=== PATIENT | female | born 1955 | race Caucasian/White ===

== ENCOUNTER 2017-01-25 13:55 | Outpatient (RCR) | payer MEDICARE, OTHER | END 2017-03-14 14:25 | disposition home or self-care (01) | LOC: ONC 13:55 | PROVIDERS: ATTEND Internal Medicine Hematology & Oncology | DX: C50.211 Malignant neoplasm of upper-inner quadrant of right female breast (principal); Z17.0 Estrogen receptor positive status [ER+]; I25.10 Atherosclerotic heart disease of native coronary artery without angina pectoris; E11.9 Type 2 diabetes mellitus without complications; E03.9 Hypothyroidism, unspecified; E78.5 Hyperlipidemia, unspecified; E66.9 Obesity, unspecified; Z68.33 Body mass index [BMI] 33.0-33.9, adult; Z79.84 Long term (current) use of oral hypoglycemic drugs; Z79.899 Other long term (current) drug therapy | CPT/HCPCS: 99213; 99214 ==

== ENCOUNTER → 2017-04-25 | Outpatient (CLI) | payer MEDICARE ==
[~2017-04-25] MED LIST: CATHETER FLUSH 10 ML SYR IV PRN
--- NOTE | 2017-04-25 11:47 | Diagnostic Imaging Report ---
PROCEDURE: CT chest with contrast, CT abdomen with and without contrast. TECHNIQUE: Precontrast acquisitions were acquired through the abdomen. Multiple contiguous axial images were obtained through the chest and abdomen after administration of intravenous contrast. INDICATION: Right breast carcinoma, status post lumpectomy. COMPARISON: No prior CT studies are available for comparison. FINDINGS: CT chest: Postsurgical changes to the right breast are identified with multiple surgical clips present. No axillary lymphadenopathy is identified. No internal mammary lymphadenopathy is seen. No mediastinal or hilar lymphadenopathy is identified. No pericardial or pleural fluid is detected. Parenchymal evaluation is without evidence of a parenchymal mass, nodule, or infiltrate. Bony structures are unremarkable. IMPRESSION: Post-therapeutic changes to the right breast. No thoracic lymphadenopathy or evidence of pulmonary metastatic disease is identified. CT abdomen: No discrete liver mass is identified. The gallbladder is surgically absent. Pancreas and spleen are unremarkable. No adrenal mass is identified. The kidneys are unremarkable. The aorta is heavily calcified but nonaneurysmal. No central retroperitoneal or mesenteric lymphadenopathy is seen. The visualized bowel loops are of normal caliber. There is no ascites. The bony structures are unremarkable. IMPRESSION: Unremarkable CT of the abdomen. Dictated by: Dictated on workstation # [id number]
--- NOTE | 2017-04-25 12:28 | Diagnostic Imaging Report ---
INDICATION: Screening for osteoporosis. FINDINGS: Bone mineral analysis of lumbar spine and both hips was performed. The bone mineral density of the lumbar spine is 1.064 with a T score of -1.1. Bone mineral density of left femoral neck is 0.881 with a T score of -1.1. Bone mineral density of right femoral neck is 0.834 with a T score of -1.5. IMPRESSION: Findings consistent with osteopenia of the lumbar spine and bilateral femoral necks. Dictated by: Dictated on workstation # [id number]
--- NOTE | 2017-04-25 14:16 | Diagnostic Imaging Report ---
INDICATION: Right breast carcinoma. TECHNIQUE: The patient was administered 27.1 mCi of technetium 99m MDP intravenously and whole body imaging was performed after a three-hour delay. COMPARISON: No prior studies are available for comparison. FINDINGS: There is normal uptake of activity by the axial and appendicular skeleton. There is normal uptake of activity by both kidneys with excretion into the urinary bladder. There is mild abnormal uptake involving two separate lower thoracic vertebral bodies, approximately T12 and T9. No corresponding abnormality on recent CT study performed earlier the same day is identified. There are two regions of abnormal uptake involving the left calvarium. A smaller focus near the midline is seen. IMPRESSION: 1. Abnormal bone scan demonstrating mild uptake involving the lower thoracic vertebrae without corresponding abnormality noted on CT study earlier the same day. MRI of the thoracic spine would be recommended for further evaluation. 2. Abnormal uptake involving the left calvarium, suspicious for a metastatic lesion. MRI or CT would be recommended for further evaluation. Dictated by: Dictated on workstation # [id number]
== END ==
LOC: RAD 10:10
PROVIDERS: ATTEND Internal Medicine Hematology & Oncology
DX: Z13.820 Encounter for screening for osteoporosis (principal); C50.211 Malignant neoplasm of upper-inner quadrant of right female breast; R93.8 Abnormal findings on diagnostic imaging of other specified body structures; Z90.11 Acquired absence of right breast and nipple; Z78.0 Asymptomatic menopausal state
CPT/HCPCS: 71260; 74170; 77080; 78306

== ENCOUNTER → 2017-04-29 | Outpatient (CLI) | payer MEDICARE ==
[~2017-04-29] MED LIST changes: -CATHETER FLUSH 10 ML SYR IV PRN; +GADOBUTROL 10 MMOL/10 ML (GADAVIST) VIAL IV ONE
--- NOTE | 2017-04-29 15:16 | Diagnostic Imaging Report ---
PROCEDURE: MR imaging of the brain with and without contrast. TECHNIQUE: Multiplanar, multisequence MR imaging of the brain was performed with and without contrast. INDICATION: Breast cancer and abnormal bone scan with lesion involving calvarium. FINDINGS: Ventricles and sulci are within normal limits for size. Blanton and white matter signal intensities are unremarkable. There is no evidence of abnormal contrast enhancement within the brain. There is, however, abnormal signal with marrow replacement of thickened left parietal bone with associated mild intramedullary, cortical, and periosteal enhancement posteriorly on the left. There is a similar lesion seen near the midline in the left frontal bone just above the forehead region. Otherwise, there is opacification of the right maxillary sinus and multiple right ethmoid air cells with apparent obstruction of right ostiomeatal complex in the frontoethmoid recess. IMPRESSION: 1. No definite intra-axial metastatic disease to the brain however at least two areas of marrow replacement and associated expansion are seen within left parietal and frontal bones, indicating osseous metastatic disease. 2. There is also probable obstruction of the right ostiomeatal complex at the level of the frontoethmoid recess and infundibulum, resulting in sinusitis. Clinical correlation is recommended. 3. Otherwise, there is no evidence of acute abnormality. Dictated by: Dictated on workstation # [id number]
--- NOTE | 2017-04-29 15:33 | Diagnostic Imaging Report ---
INDICATION: History of breast carcinoma and abnormal recent bone scan on 04/25/2017. TECHNIQUE: Pre-and post intravenous contrast multiplanar multisequence imaging of the thoracic spine was performed. COMPARISON: Correlation is made with the whole body bone scan from 04/25/2017. FINDINGS: Curvature and alignment of the thoracic spine is normal. There is diffuse marrow replacement involving the T8 vertebral body, correlating with the bone scan abnormality. There is also a smaller marrow replacing lesion involving the T3 vertebral body. Both of these demonstrate contrast enhancement. No definite extraosseous tumor extension is identified. There is no retropulsion. No definite signal changes within the spinal cord or abnormal enhancement within the spinal cord is identified. There also appears to be marrow replacement involving posterior elements including the spinous process and lamina at the T10 level. Remaining levels are unremarkable. There is generalized degenerative disc disease with variable disc space narrowing and desiccation noted. A right paracentral disc/osteophyte does indent the ventral thecal sac at the T5-T6 level narrowing the right lateral recess. There is a midline focal disc at the T6-T7 level producing spinal canal narrowing. Broad-based disc/osteophyte complex is seen in the midline at the T9-T10 level with some resultant central canal narrowing. IMPRESSION: Marrow replacing lesions involving the T3 and T8 vertebral bodies as well as the posterior elements at the T10 level, suggestive of metastatic lesions. No definite central compression at these levels is identified. No signal changes within the spinal cord are detected. There is generalized thoracic spondylosis with multilevel disc/osteophyte complex noted creating central canal and lateral recess narrowing, described level by level above. Dictated by: Dictated on workstation # [id number]
== END ==
LOC: RAD 13:02
PROVIDERS: ATTEND Internal Medicine Hematology & Oncology
DX: M48.04 Spinal stenosis, thoracic region (principal); M47.814 Spondylosis without myelopathy or radiculopathy, thoracic region; M89.9 Disorder of bone, unspecified
CPT/HCPCS: 70553; 72157

== ENCOUNTER 2017-06-13 10:16 | Outpatient (RCR) | payer MEDICARE ==
[2017-04-25 09:58] LABS: BASOPHILS % (AUTO) 0 % (0-10); EOSINOPHILS # (AUTO) 0.1 10^3/uL (0.0-0.3); EOSINOPHILS % (AUTO) 1 % (0-10); HEMATOCRIT 43 % (35-52); HEMOGLOBIN 14.9 G/DL (11.5-16.0); LYMPHOCYTES # (AUTO) 2.7 X 10^3 (1.0-4.0); LYMPHOCYTES % (AUTO) 33 % (12-44); MEAN CORPUSCULAR HEMOGLOBIN 32 PG (25-34); MEAN CORPUSCULAR HGB CONC 35 G/DL (32-36); MEAN CORPUSCULAR VOLUME 91 FL (80-99); MEAN PLATELET VOLUME 10.8 FL (7.4-10.4); MONOCYTES # (AUTO) 0.4 X 10^3 (0.0-1.0); MONOCYTES % (AUTO) 5 % (0-12); NEUTROPHILS # (AUTO) 4.9 X 10^3 (1.8-7.8); NEUTROPHILS % (AUTO) 61 % (42-75); PLATELET COUNT 273 10^3/uL (130-400); RED CELL DISTRIBUTION WIDTH 12.9 % (10.0-14.5); WHITE BLOOD COUNT 8.1 10^3/uL (4.3-11.0)
[2017-04-25 10:18] LABS: ALANINE AMINOTRANSFERASE 22 U/L (0-55); ALBUMIN 4.2 GM/DL (3.2-4.5); ALKALINE PHOSPHATASE 100 U/L (40-136); BILIRUBIN,TOTAL 0.6 MG/DL (0.1-1.0); BUN/CREATININE RATIO 14; CALCIUM 9.9 MG/DL (8.5-10.1); CARBON DIOXIDE 24 MMOL/L (21-32); CHLORIDE 100 MMOL/L (98-107); CREATININE SERUM 0.76 MG/DL (0.60-1.30); GFR ESTIMATED > 60; GLUCOSE 246 MG/DL (70-105); POTASSIUM 4.4 MMOL/L (3.6-5.0); SODIUM 136 MMOL/L (135-145)
[2017-06-13 10:58] LABS: BASOPHILS % (AUTO) 0 % (0-10); EOSINOPHILS % (AUTO) 0 % (0-10); HEMATOCRIT 44 % (35-52); HEMOGLOBIN 15.8 G/DL (11.5-16.0); LYMPHOCYTES # (AUTO) 0.7 X 10^3 (1.0-4.0); LYMPHOCYTES % (AUTO) 10 % (12-44); MEAN CORPUSCULAR HEMOGLOBIN 32 PG (25-34); MEAN CORPUSCULAR HGB CONC 36 G/DL (32-36); MEAN CORPUSCULAR VOLUME 90 FL (80-99); MEAN PLATELET VOLUME 10.9 FL (7.4-10.4); MONOCYTES # (AUTO) 0.5 X 10^3 (0.0-1.0); MONOCYTES % (AUTO) 8 % (0-12); NEUTROPHILS # (AUTO) 5.6 X 10^3 (1.8-7.8); NEUTROPHILS % (AUTO) 82 % (42-75); PLATELET COUNT 210 10^3/uL (130-400); RED BLOOD COUNT 4.96 10^6/uL (4.35-5.85); RED CELL DISTRIBUTION WIDTH 12.9 % (10.0-14.5); WHITE BLOOD COUNT 6.8 10^3/uL (4.3-11.0)
[2017-06-13 11:17] LABS: ALANINE AMINOTRANSFERASE 22 U/L (0-55); ALBUMIN 4.5 GM/DL (3.2-4.5); ALKALINE PHOSPHATASE 93 U/L (40-136); BILIRUBIN,TOTAL 0.8 MG/DL (0.1-1.0); BUN/CREATININE RATIO 16; CARBON DIOXIDE 22 MMOL/L (21-32); CHLORIDE 98 MMOL/L (98-107); CREATININE SERUM 0.79 MG/DL (0.60-1.30); GFR ESTIMATED > 60; GLUCOSE 259 MG/DL (70-105); POTASSIUM 4.3 MMOL/L (3.6-5.0); SODIUM 132 MMOL/L (135-145); TOTAL PROTEIN 7.9 GM/DL (6.4-8.2)
== END 2017-06-24 | disposition home or self-care (01) ==
LOC: ONC 10:16
PROVIDERS: ATTEND Internal Medicine Hematology & Oncology
DX: C50.211 Malignant neoplasm of upper-inner quadrant of right female breast (principal); Z17.0 Estrogen receptor positive status [ER+]; I25.10 Atherosclerotic heart disease of native coronary artery without angina pectoris; E11.9 Type 2 diabetes mellitus without complications; E03.9 Hypothyroidism, unspecified; E78.5 Hyperlipidemia, unspecified; E66.9 Obesity, unspecified; Z68.33 Body mass index [BMI] 33.0-33.9, adult; Z79.84 Long term (current) use of oral hypoglycemic drugs; Z79.899 Other long term (current) drug therapy
CPT/HCPCS: 36415; 80053; 82306; 85025; 86300; 99213